=== PATIENT | female | born 2000 | race Caucasian/White ===

== ENCOUNTER 2019-04-25 22:42 | Emergency (ER) | payer MEDICAID, OTHER ==
[~2019-04-25] VITALS: Ht 157.5 cm; Wt 96.0 kg
--- NOTE | 2019-04-25 22:49 | NUR ---
assessment made. chart up for MD to see.
--- NOTE | 2019-04-25 23:00 | NUR ---
ERP at bedside.
--- NOTE | 2019-04-25 23:13 | NUR ---
patient to X ray.
--- NOTE | 2019-04-25 23:53 | NUR ---
pt to xray
--- NOTE | 2019-04-26 00:45 | NUR ---
all xray resulted. re-evaluation done. patient medicated.
[2019-04-26] MEDS ORDERED: METHOCARBAMOL 750 MG TABLET ONE (00:51)
[2019-04-26] MEDS ORDERED: KETOROLAC 30 MG/1 ML ONE (00:51)
[2019-04-26] MEDS ORDERED: KETOROLAC 30 MG/1 ML IM ONE (01:00)
[2019-04-26] MEDS ORDERED: METHOCARBAMOL 750 MG TABLET PO ONE (01:00)
--- NOTE | 2019-04-26 01:01 | NUR ---
patient discharged with prescriptions and instruction. verbalized understanding. malika wrap applied to right wrist.
[2019-04-26 01:02] VITALS: BP 115/78
== END 2019-04-26 01:04 | disposition home or self-care (01) ==
LOC: ED 23:34
DX: S16.1XXA Strain of muscle, fascia and tendon at neck level, initial encounter (principal); S60.211A Contusion of right wrist, initial encounter; V49.19XA Passenger injured in collision with other motor vehicles in nontraffic accident, initial encounter; Y93.89 Activity, other specified; Y92.89 Other specified places as the place of occurrence of the external cause; Y99.8 Other external cause status
CPT/HCPCS: 72020; 72050; 73110; 73130; 96372; 99283; J1885

== ENCOUNTER 2019-12-10 00:07 | Emergency (ER) | payer OTHER ==
[~2019-12-10] VITALS: Ht 157.5 cm; Wt 93.2 kg
[2019-12-10 00:09] VITALS: BP 152/99
[2019-12-10] MEDS ORDERED: ACETAMINOPHEN 500 MG TABLET ONE (00:44)
[2019-12-10] MEDS ORDERED: IBUPROFEN 600 MG TABLET ONE (00:44)
[2019-12-10] MEDS ORDERED: IBUPROFEN 600 MG TABLET PO ONE (01:00)
[2019-12-10] MEDS ORDERED: ACETAMINOPHEN 500 MG TABLET PO ONE (01:00)
== END 2019-12-10 01:07 | disposition home or self-care (01) ==
LOC: ED 01:01
DX: S29.011A Strain of muscle and tendon of front wall of thorax, initial encounter (principal); X58.XXXA Exposure to other specified factors, initial encounter; Y93.89 Activity, other specified; Y92.89 Other specified places as the place of occurrence of the external cause; Y99.8 Other external cause status
CPT/HCPCS: 99283